=== PATIENT | male | born 1965 | race Caucasian/White ===

== ENCOUNTER 2018-08-28 12:32 | Emergency (ER) | payer OTHER ==
[2018-08-28 12:57] VITALS: PULSE 71; RESP 17; TEMP 98.8; O2SAT 99
[2018-08-28 13:00] VITALS: BP 134/68
--- NOTE | 2018-08-28 13:21 | ED PDOC ---
HPI: CCC, URI, Sore Throat Time Seen by Provider: 08/28/18 13:10 Chief Complaint (Nursing): ENT Problem Chief Complaint (Provider): ENT Problem History Per: Patient History/Exam Limitations: no limitations Onset/Duration Of Symptoms: Days (x3) Current Symptoms Are (Timing): Still Present Sick Contacts (Context): Family Member(s) (all with flu) Additional Complaint(s): Patient is a 52 y/o male with no significant PMHX who presents to the ED for evaluation of a cough and congestion ongoing for the past three days. Patient admits to having a sore throat and tactile fever yesterday. Patient denies chest pain. Patient's family all have the flu. Of note, patient claims to have received flu vaccine. PCP: Dr. Shekhar Peterson Past Medical History Reviewed: Historical Data, Nursing Documentation, Vital Signs Vital Signs: Last Vital Signs Temp 98.8 F 08/28/18 12:55 Pulse 71 08/28/18 12:55 Resp 17 08/28/18 12:55 BP 134/68 08/28/18 13:00 Pulse Ox 99 08/28/18 12:55 - Medical History PMH: No Chronic Diseases - Surgical History Surgical History: No Surg Hx - Family History Family History: States: No Known Family Hx - Immunization History Hx Influenza Vaccination: Yes - Home Medications Home Medications: Ambulatory Orders Medication Instructions Recorded Acetaminophen [Acetaminophen Extra 2 tab PO Q6 PRN #24 tablet 08/28/18 Strength] Ibuprofen [Motrin Tab] 800 mg PO Q8 PRN #21 tab 08/28/18 Oseltamivir Cap [Tamiflu] 75 mg PO BID #9 cap 08/28/18 Promethazine/Codeine 5 ml PO Q12 PRN #100 ml 08/28/18 [Codeine/Promethazine 10 MG/5 Ml-6.25 MG/5 Ml] - Allergies Allergies/Adverse Reactions: Allergies Allergy/AdvReac Type Severity Reaction Status Date / Time No Known Allergies Allergy Verified 08/28/18 12:57 Review of Systems ROS Statement: Except As Marked, All Systems Reviewed And Found Negative Constitutional: Positive for: Fever (tactile) ENT: Positive for: Nose Congestion, Throat Pain (soreness) Cardiovascular: Negative for: Chest Pain Respiratory: Positive for: Cough Physical Exam - Reviewed Nursing Documentation Reviewed: Yes Vital Signs Reviewed: Yes - Physical Exam Appears: Positive for: No Acute Distress Head Exam: Positive for: ATRAUMATIC, NORMAL INSPECTION, NORMOCEPHALIC Skin: Positive for: Normal Color, Warm, DRY Eye Exam: Positive for: EOMI, Normal appearance, PERRL ENT: Positive for: Other (uvula mildly inflammed). Negative for: Tonsillar Exudate, Tonsillar Swelling Neck: Positive for: Normal, Painless ROM, Supple Cardiovascular/Chest: Positive for: Regular Rate, Rhythm. Negative for: Murmur Respiratory: Positive for: Normal Breath Sounds (clear auscultation bilaterally). Negative for: Respiratory Distress Gastrointestinal/Abdominal: Positive for: Normal Exam, Soft. Negative for: Tenderness Extremity: Positive for: Normal ROM. Negative for: Pedal Edema, Deformity Neurologic/Psych: Positive for: Alert, Oriented. Negative for: Motor/Sensory Deficits - ECG O2 Sat by Pulse Oximetry: 99 (RA) Pulse Ox Interpretation: Normal - Progress ED Course And Treament: flu A positive rapid strep negative tamiflu 75 mg x 1 dose Medical Decision Making Medical Decision Making: Time: 1313 Plan: Influenza A B Rapid Strep Group A Antigen Throat Culture Tamiflu 75 mg PO Time: 1330 Positive for flu. Instructed to take precaution. Scribe Attestation: Documented by Dwight Moore, acting as a scribe for DAVIDE Clarke. Provider Scribe Attestation: All medical record entries made by the Scribe were at my direction and personally dictated by me. I have reviewed the chart and agree that the record accurately reflects my personal performance of the history, physical exam, medical decision making, and the department course for this patient. I have also personally directed, reviewed, and agree with the discharge instructions and disposition. Disposition - Clinical Impression Clinical Impression: Influenza A - Patient ED Disposition Is Patient to be Admitted: No - Disposition Disposition: Routine/Home Disposition Time: 13:48 Condition: FAIR Prescriptions: Acetaminophen [Acetaminophen Extra Strength] 2 tab PO Q6 PRN #24 tablet PRN Reason: Fever >100.4 F Ibuprofen [Motrin Tab] 800 mg PO Q8 PRN #21 tab PRN Reason: Fever >100.4 F Oseltamivir Cap [Tamiflu] 75 mg PO BID #9 cap Promethazine/Codeine [Codeine/Promethazine 10 MG/5 Ml-6.25 MG/5 Ml] 5 ml PO Q12 PRN #100 ml PRN Reason: Cough Instructions: Flu, Adult (DC) Forms: [facility] ED School/Work Excuse - POA Present On Arrival: None
== END 2018-08-28 14:03 | disposition home or self-care (01) ==
LOC: H.ER 12:32
DX: J09.X2 Influenza due to identified novel influenza A virus with other respiratory manifestations (principal)